=== PATIENT | female | born 1980 ===

== ENCOUNTER 2018-05-24 09:59 | Emergency (ER) | payer MEDICAID, OTHER ==
[2018-05-24 09:59] VITALS: BMI 27.3
[2018-05-24 10:19] VITALS: BP 100/62; PULSE 72; RESP 17; TEMP 98.5; O2SAT 99
--- NOTE | 2018-05-24 11:00 | C.PDOC ---
History Of Present Illness 37 year old female presents to the ED complaining of right upper eyelid swelling, pain, itching, and redness since yesterday. She does not wear glasses or use contact lenses. Otherwise patient denies any eye injury, vision change or double vision, or eye discharge. Time Seen by Provider: 05/24/18 10:55 Chief Complaint (Nursing): Eye Problem History Per: Patient History/Exam Limitations: no limitations Onset/Duration Of Symptoms: Days Current Symptoms Are (Timing): Still Present Past Medical History Reviewed: Historical Data, Nursing Documentation, Vital Signs Vital Signs: Last Vital Signs Temp 98.5 F 05/24/18 10:15 Pulse 72 05/24/18 10:15 Resp 17 05/24/18 10:15 BP 100/62 05/24/18 10:15 Pulse Ox 99 05/24/18 10:15 Family History: States: No Known Family Hx - Social History Hx Alcohol Use: No Hx Substance Use: No - Immunization History Hx Tetanus Toxoid Vaccination: Yes Hx Influenza Vaccination: Yes (04/2018) Hx Pneumococcal Vaccination: No Review Of Systems Except As Marked, All Systems Reviewed And Found Negative. Constitutional: Negative for: Fever, Chills Eyes: Positive for: Pain (to right eye), Eyelid Inflammation (to right eye), Redness (to right eye). Negative for: Vision Change ENT: Negative for: Ear Pain Respiratory: Negative for: Cough Physical Exam - Physical Exam Appears: Well, Non-toxic, No Acute Distress Skin: Normal Color, Warm, Dry Head: Atraumatic, Normacephalic Eye(s): bilateral: PERRL, EOMI, right: Other (mild eyelid inflammation and redness to inner corner or right upper eyelid; no crust on lashes, no discharge), left: Normal Inspection Nose: Normal Oral Mucosa: Moist Neurological/Psych: Oriented x3, Normal Speech Gait: Steady ED Course And Treatment O2 Sat by Pulse Oximetry: 99 (RA) Pulse Ox Interpretation: Normal Medical Decision Making Medical Decision Making: Patient with eyelid inflammation, no signs of foreign body or cellulitis. Recommend warm towel compress to area and to apply antibiotic ointment. Advise follow up with naval architect specialist if the symptoms worsen. Disposition Counseled Patient/Family Regarding: Diagnosis, Need For Followup, Rx Given - Disposition Referrals: Emmanuel Connelly [Staff Provider] - Disposition: HOME/ ROUTINE Disposition Time: 11:00 Condition: GOOD Additional Instructions: Recommend warm towel compress to area and to apply antibiotic ointment. Advise follow up with naval architect specialist if the symptoms worsen. Prescriptions: Erythromycin 0.5% [Erythromycin] 1 applic OD BID #1 tube Instructions: Blepharitis Print Language: MAORI - POA Present On Arrival: None - Clinical Impression Clinical Impression: Blepharitis - PA / DEMOLITION ENGINEER / Resident Statement MD/DO has reviewed & agrees with the documentation as recorded. - Scribe Statement The provider has reviewed the documentation as recorded by the Scribe (Lynda Berrios) All medical record entries made by the Scribe were at my direction and personally dictated by me. I have reviewed the chart and agree that the record accurately reflects my personal performance of the history, physical exam, medical decision making, and the department course for this patient. I have also personally directed, reviewed, and agree with the discharge instructions and disposition.
== END 2018-05-24 11:14 | disposition home or self-care (01) ==
LOC: C.ER 09:59
DX: H01.001 Unspecified blepharitis right upper eyelid (principal)